=== PATIENT | female | born 1935 | race Two or more races ===

== ENCOUNTER 2016-06-04 09:44 | Emergency (ER) | payer MEDICARE ==
[~2016-06-04] VITALS: Ht 157.5 cm; Wt 60.0 kg
[2016-06-04 09:50] VITALS: Ht 157.5 cm; Wt 60.0 kg
--- NOTE | 2016-06-04 10:11 | ERA ---
ER Documentation Chief Complaint Date/Time DATE: 06/04/16 TIME: 10:02 Chief Complaint HPI Patient is an 80-year-old female who presents with sudden onset, constant, moderate left facial droop and left-sided weakness for unknown time period. The patient states that she went to bed at 930 last night, awoke in the middle of the night around 1:00 and was seen to be in her normal state by her daughter at that time. The patient went back to bed by 2:00 and awoke at 5:00 in the morning. The patient was never aware of having any deficit including at this time. Patient denies any symptoms at this time. Denies chest pain, shortness of breath, headache, dizziness. ROS All systems reviewed and are negative except as per history of present illness. Medications Home Meds Reported Medications Furosemide* (Furosemide*) 20 Mg Tablet, 20 MG PO BID, #30 TAB 06/04/16 Metolazone* (Metolazone*) 2.5 Mg Tablet, 2.5 MG PO DAILY, TAB 06/04/16 Levothyroxine Sodium* (Levothyroxine Sodium*) 50 Mcg Tablet, 50 MCG PO BEFORE BREAKFAST, #30 TAB 06/04/16 Aspirin* (Aspirin* Chew) 81 Mg Tab.chew, 81 MG PO DAILY, TAB.CHEW 06/04/16 Insulin Glargine* (Lantus*) 100 Unit/Ml Soln, 33 UNIT SC QHS, #1 VIAL 06/04/16 Insulin Aspart* (Novolog Insulin Pen*) 100 Unit/Ml Soln, 0 SC .SLIDING SCALE AC , EA 06/04/16 Metoprolol Tartrate* (Lopressor*) 25 Mg Tablet, 25 MG PO BID, #60 TAB 06/04/16 Clopidogrel Bisulfate (Clopidogrel) 75 Mg Tablet, 75 MG PO DAILY, #30 TAB 06/04/16 Atorvastatin Calcium (Atorvastatin Calcium) 10 Mg Tablet, 10 MG PO QHS, #30 TAB 06/04/16 Allergies Allergies: Coded Allergies: Penicillins (Verified Allergy, Mild, 06/04/16) iodine (Unverified Allergy, Unknown, UNK, 06/04/16) FmHx Past medical history: Diabetes, hypertension, TIA, coronary artery disease, hypothyroidism Past surgical history: Quadruple bypass, cardiac stent, , cholecystectomy, pacemaker Social history: Denies tobacco or alcohol Family History: No coronary disease, No diabetes Physical Exam Vitals Vital Signs Date Time Temp Pulse Resp B/P Pulse Ox O2 Delivery O2 Flow Rate FiO2 06/04/16 09:50 98.0 71 18 133/59 100 Physical Exam Const: Alert, no acute distress Head: Atraumatic Eyes: Normal Conjunctiva, no pallor or icterus ENT: Normal External Ears, Nose and Mouth. Neck: Full range of motion. No JVD. No meningismus. Resp: Clear to auscultation bilaterally, no wheeze, no rales Cardio: Regular rate and rhythm, no murmurs Abd: Soft, non tender, non distended. Normal bowel sounds Skin: No petechiae or rashes Back: No midline or flank tenderness Ext: No cyanosis, or edema Neur: Awake and alert, left lower facial droop, mild weakness to left arm with equivocal pronator drift. Strength full in lower extremities. No dysmetria. Negative Babinski. Psych: Normal Mood and Affect Result Diagram: 06/04/16 1000 06/04/16 1000 Results 24 hrs Laboratory Tests Test 06/04/16 10:00 06/04/16 10:16 White Blood Count 10.810^3/ul Red Blood Count 3.3710^6/ul Hemoglobin 9.1g/dl Hematocrit 30.4% Mean Corpuscular Volume 90.2fl Mean Corpuscular Hemoglobin 27.0pg Mean Corpuscular Hemoglobin Concent 29.9g/dl Red Cell Distribution Width 14.3% Platelet Count 41778^3/UL Mean Platelet Volume 12.4fl Neutrophils % 65.5% Lymphocytes % 21.0% Monocytes % 9.3% Eosinophils % 3.1% Basophils % 0.4% Nucleated Red Blood Cells % 0.0/100WBC Neutrophils # 7.110^3/ul Lymphocytes # 2.310^3/ul Monocytes # 1.010^3/ul Eosinophils # 0.310^3/ul Basophils # 0.010^3/ul Nucleated Red Blood Cells # 0.010^3/ul Prothrombin Time 13.8Sec Prothrombin Time Ratio 1.1 INR International Normalized Ratio 1.06 Activated Partial Thromboplast Time 30.1Sec Sodium Level 143mmol/L Potassium Level 3.7mmol/L Chloride Level 103mmol/L Carbon Dioxide Level 29mmol/L Anion Gap 15 Blood Urea Nitrogen 24mg/dl Creatinine 1.21mg/dl Glucose Level 79mg/dl Hemoglobin A1c 7.3% Calcium Level 9.1mg/dl Troponin I < 0.012ng/ml Bedside Glucose 75mg/dL Current Medications Medications (Trade) Dose Ordered Sig/Alfonso Route PRN Reason Start Time Stop Time Status Last Admin Dose Admin IV Flush 10 ml 10 ml STK-MED ONCE .ROUTE 06/04/16 11:13 06/04/16 11:14 DC 06/04/16 12:08 Sodium Chloride 100 ml @ ud STK-MED ONCE .ROUTE 06/04/16 11:13 06/04/16 11:14 DC 06/04/16 12:09 Iohexol (Omnipaque) 100 ml @ ud STK-MED ONCE .ROUTE 06/04/16 11:13 06/04/16 11:14 DC 06/04/16 12:09 Aspirin (Aspirin) 162 mg ONCE ONCE PO 06/04/16 12:00 06/04/16 12:01 DC 06/04/16 12:10 Procedures/MDM EKG read by me: Time 1012, rate 69 Rhythm: Normal sinus rhythm with occasional paced beats [place]: Normal Intervals: Borderline QTC, wide QRS due to left bundle branch block ST-T waves: No Sgarbossa criteria Ectopy: No Q-waves: No Impression: Left bundle branch block with occasional paced beats MDM: Patient is an 80-year-old female who presents with left facial droop and diminished strength in the left arm for unknown duration. Last known well time was greater than 6 hours from patient's presentation, so the patient is not a TPA candidate. The patient is unaware of her symptoms, suggestive of neglect syndrome. CT does not show any changes in grady-white matter differentiation, which suggests more acute onset. CTA demonstrates a nonocclusive thrombus at the right MCA bifurcation. There is no evidence of intracranial hemorrhage. I spoke with Dr. Yanes, the neurologist on-call at [facility] , and he agreed to accept the patient for possible interventional neurologic therapy. The patient and daughter are also agreeable to transfer. The patient is hemodynamically stable. The patient was given aspirin. The patient's other labs demonstrate moderate anemia, but are otherwise unremarkable. Calculated NIHSS is 5. Critical Care Time: 32 minutes Treatments/Evaluations: Close monitoring and treatment of vital signs, cardiorespiratory, and neurologic status, while maintaining tight balance of fluid, respiratory, and cardiac interventions. This time includes discussing the case with the patient and the patient's family. This time does not include all procedures stated elsewhere in this record. This time also includes reviewing old records, labs and radiological studies. This time includes examining and re-examining the patient. Additionally, this time also includes arranging care with admitting and consulting physicians. Departure Diagnosis: Primary Impression: Acute ischemic right middle cerebral artery (MCA) stroke Condition: Stable PAZ WALLS MD Jun 04, 2016 10:11 PAZ WALLS MD Jun 04, 2016 10:11
[2016-06-04 10:37] LABS: ADD SCAN DIFF NO
--- NOTE | 2016-06-04 10:39 | RADRPT ---
PROCEDURE: Noncontrast CT Head. CLINICAL INDICATION: Code stroke. Acute neurologic deficit. Left facial droop. TECHNIQUE: Noncontrast CT of the head was obtained. The administered radiation dose was CTDI vol = 45.01 mGy, DLP = 720.23 mGy-cm. One or more of the following dose reduction techniques were used: Au tomated exposure control, Adjustment of the mA and/or kV according to patient size, or Use of iterat tayla reconstruction technique. COMPARISON: There are no similar studies submitted for comparison. FINDINGS: There is mild to moderate central and peripheral cerebral volume loss. There is mild periventricular hypoattenuation suggesting chronic microvascular ischemic changes. There are moderate to extensive vascular calcifications within the intracranial carotid arteries. There is a chronic right thalamic lacunar infarction. There is no loss of grady-white differentiation to suggest acute territorial infarction. There is no acute intracranial hemorrhage or extra-axial fluid collection. There is no mass effect. No midline shift is identified. There is hyperdensity within 2 of the proximal right M2 branches at the right MCA bifurcation (image 16 series 2) suggestive of thrombus. The orbits are within normal limits. There is complete bilateral sphenoid sinus mucosal thickening. There is a 5 mm left ethmoid sinus f ibroosseous lesion (image 3 series 3). No destructive osseous lesion is identified. IMPRESSION: 1. No loss of grady-white differentiation to suggest acute territorial infarction. Hyperdensity withi n 2 of the proximal right M2 branches at the right MCA bifurcation suggestive of thrombus. Consider CTA of the head/neck or noncontrast MRI of the brain as clinically warranted. 2. No acute intracranial hemorrhage or extra-axial fluid collection. 3. Mild to moderate central and peripheral cerebral volume loss. 4. Mild chronic microvascular ischemic changes. 5. Chronic right thalamic lacunar infarction. Further findings as detailed above. These findings were discussed with Dr. Fermín Russ at 10:36 a.m. on May 08, 2016. RPTAT: PP .Los Dyer MD, Date Time Electronically viewed and signed by .Los Dyer MD, on 06/04/2016 10:38 .F/
[2016-06-04 10:46] LABS: BASOPHILS % 0.4 % (0.0-2.0); EOSINOPHILS # 0.3 10^3/ul (0.0-0.5); EOSINOPHILS % 3.1 % (0.0-7.0); HEMATOCRIT 30.4 % (37.0-47.0); HEMOGLOBIN 9.1 g/dl (12.0-16.0); LYMPHOCYTES # 2.3 10^3/ul (0.8-2.9); MEAN CORPUSCULAR HGB CONC 29.9 g/dl (32.0-37.0); MEAN CORPUSCULAR VOLUME 90.2 fl (82.0-101.0); MEAN PLATELET VOLUME 12.4 fl (7.4-10.4); MONOCYTES % 9.3 % (0.0-11.0); NEUTROPHIL # 7.1 10^3/ul (1.6-7.5); NEUTROPHILS % 65.5 % (39.0-77.0); PLATELET COUNT 265 10^3/UL (140-415); RED BLOOD COUNT 3.37 10^6/ul (4.20-5.40); RED CELL DISTRIBUTION WIDTH 14.3 % (11.5-14.5); WHITE BLOOD COUNT 10.8 10^3/ul (4.8-10.8)
[2016-06-04 10:52] LABS: CHLORIDE 103 mmol/L (97-110)
[2016-06-04 10:53] LABS: POTASSIUM 3.7 mmol/L (3.5-5.1); SODIUM 143 mmol/L (135-144)
[2016-06-04 10:54] LABS: INR 1.06; PROTIME 13.8 Sec (12.2-14.2); PT RATIO 1.1
[2016-06-04 10:55] LABS: CREATININE 1.21 mg/dl (0.44-1.00); PARTIAL THROMBOPLASTIN TIME 30.1 Sec (25.0-35.0)
[2016-06-04 10:56] LABS: ANION GAP 15 (8-16); BLOOD UREA NITROGEN 24 mg/dl (7-20); CALCIUM 9.1 mg/dl (8.4-10.2); CARBON DIOXIDE 29 mmol/L (21-31); GLUCOSE 79 mg/dl (70-220)
[2016-06-04 11:11] LABS: TROPONIN-I < 0.012 ng/ml (0.00-0.12)
[2016-06-04] MEDS ORDERED: SOD CHLORIDE 0.9% 100 ML ONE (11:13)
[2016-06-04] MEDS ORDERED: IOHEXOL 100 ML ONE (11:13)
--- NOTE | 2016-06-04 11:38 | RADRPT ---
PROCEDURE: CTA BRAIN WITH CONTRAST CLINICAL INDICATION: Neurologic deficit, stroke COMPARISON: Correlation head CT earlier today TECHNIQUE: Helical axial images were obtained through the head with contrast. Coronal and sagittal MIP images w ere obtained through the brain. Additional 3D volumetric renderings were created. 100 cc of Isovue 370 was administered intravenously without reported complication. DOSE: CTDI = 45 mGy and the DLP = 720 mGy-cm. FINDINGS: Focal stenosis/nonocclusive thrombus at the right MCA bifurcation. Contrast is seen in the distal ri ght MCA branches. Mild multifocal luminal narrowing of the cavernous and clinoid ICA segments bilate rally.No evidence of a significant stenosis of the bilateral ANTONI, left MCA, or bilateral METHODOLOGIST vessels . Predominant origin bilateral METHODOLOGIST. Hypoplastic left P1 segment. The bilateral vertebral and basilar arteries are without significant stenosis or occlusion. The left vertebral artery is hypopla stic. No aneurysm are identified. IMPRESSION: Focal stenosis/nonocclusive thrombus at the right MCA bifurcation. Mild multifocal luminal narrowing of the cavernous and clinoid ICA segments bilaterally. A call report was made to Dr. WALLS at 06/04/2016 11:35:52 AM. RPTAT: AA .Alex Villanueva MD, MD Date Time Electronically viewed and signed by .Alex Villanueva MD, on 06/04/2016 11:37 .T/
--- NOTE | 2016-06-04 11:38 | RADRPT ---
PROCEDURE: XR 1 view Chest. CLINICAL INDICATION: Stroke. TECHNIQUE: Portable Single frontal view of the chest was obtained. COMPARISON: Stroke. FINDINGS: There is a left-sided dual lead pacemaker with atrial ventricular leads. Sternotomy wires are noted . There is surgical within the mediastinum. There is mild to moderate cardiomegaly with mild aortic calcifications. The lungs are hypoaerated. There are chronic interstitial changes. There is no focal consolidation. There is no pleural effusion. No pneumothorax is identified. The osseous structures are intact. Degenerate changes are noted within the bilateral shoulders. IMPRESSION: No evidence for acute cardiopulmonary disease. Chronic interstitial changes. Left-sided pacemaker. Status post sternotomy. Mild to moderate cardiomegaly with aortic calcifications. Further findings as detailed above. RPTAT: PP .Los Dyer MD, Date Time Electronically viewed and signed by .Los Dyer MD, on 06/04/2016 11:38 .F/
[2016-06-04] MEDS ORDERED: ATOR10TA65 PO (11:52)
[2016-06-04] MEDS ORDERED: CLOP75TA27 PO (11:52)
[2016-06-04] MEDS ORDERED: METO25TA4 PO (11:52)
[2016-06-04] MEDS ORDERED: ASPI81TA3 PO (11:53)
[2016-06-04] MEDS ORDERED: LANT3I SC (11:53)
[2016-06-04] MEDS ORDERED: NOVO3I SC (11:53)
[2016-06-04] MEDS ORDERED: LEVO50TA74 PO (11:54)
[2016-06-04] MEDS ORDERED: METO2.5T12 PO (11:54)
[2016-06-04] MEDS ORDERED: FURO20TA3 PO (11:55)
[2016-06-04] MEDS ORDERED: ASPIRIN 81 MG TAB PO ONE (12:00)
[2016-06-04 12:39] VITALS: BP 137/63; PULSE 81; RESP 18; TEMP 98.5
== END 2016-06-04 12:40 | disposition short-term general hospital (02) ==
LOC: E/R 09:44
DX: I63.411 Cerebral infarction due to embolism of right middle cerebral artery (principal); I10 Essential (primary) hypertension; I25.10 Atherosclerotic heart disease of native coronary artery without angina pectoris; E03.9 Hypothyroidism, unspecified; E11.9 Type 2 diabetes mellitus without complications; Z98.61 Coronary angioplasty status; Z95.0 Presence of cardiac pacemaker; Z79.4 Long term (current) use of insulin; Z79.82 Long term (current) use of aspirin; Z79.01 Long term (current) use of anticoagulants
CPT/HCPCS: 36415; 70450; 70496; 71010; 80048; 82962; 83036; 84484; 85025; 85610; 85730; 93005; 99291; Q9967